=== PATIENT | male | born 1985 | race Two or more races ===

== ENCOUNTER 2017-04-16 01:31 | Emergency (ER) | payer OTHER ==
[~2017-04-16] VITALS: Ht 167.6 cm; Wt 106.6 kg
--- NOTE | ~2017-04-16 | CR132 ---
[facility] A Service of [facility] & [facility] RADIOLOGY TEXT RESULTS PATIENT: SHAHRAM FAN LOCATION: [facility] : 89 UNIT #: [id number] AGE: [address]: WILLY MORALES APRN SEX: M ORDER DR: [id number] [facility] [address] [place], [place] [address] [id number] E MR#: [id number] Acc #: [id number] NAME: SHAHRAM FAN : 1985 SEX: M STUDY DATE/TIME: 04/16/2017 3:17 UNIT: [facility] ROOM: STUDY DESCRIPTION: CR Forearm 2 View Lt Attending Physician: Willy Morales Aprn Ordering Physician: Willy Morales Aprn Primary Care Physician: Primary Care Physician No MEDICAL IMAGING REPORT This report is preliminary unless electronic signature is present EXAM Left forearm 2 views HISTORY Arm pain after fall today. FINDINGS AP and lateral views of the forearm show no evidence of fracture or destructive bone lesion. No periosteal elevation is seen. No radiodense foreign bodies are noted. Adjacent soft tissue structures are normal. IMPRESSION Normal forearm. Dictated by... William Pepe M.D. THIS IS AN ELECTRONICALLY VERIFIED REPORT William Pepe M.D. at 04/17/2017 4:49 AM KOURTNEY/[email or web address] TD: 04/17/2017 00:05 JOB #: [id number] MEDICAL IMAGING REPORT Page 1 of 1 COPY
--- NOTE | ~2017-04-16 | CR93 ---
[facility] A Service of [facility] & [facility] RADIOLOGY TEXT RESULTS PATIENT: SHAHRAM FAN LOCATION: [facility] : 87 UNIT #: [id number] AGE: [address]: WILLY MORALES APRN SEX: M ORDER DR: [id number] [facility] [address] [place], [place] [address] [id number] E MR#: [id number] Acc #: [id number] NAME: SHAHRAM FAN : 1985 SEX: M STUDY DATE/TIME: 04/16/2017 3:15 UNIT: [facility] ROOM: STUDY DESCRIPTION: CR Elbow Min 3 Views Lt Attending Physician: Willy Morales Aprn Ordering Physician: Willy Morales Aprn Primary Care Physician: No Primary Care Physician MEDICAL IMAGING REPORT This report is preliminary unless electronic signature is present EXAM Left elbow, 3 views. HISTORY Elbow pain after fall today. FINDINGS AP and lateral examination of the elbow shows satisfactory articulation of the humerus with the proximal radius and ulna. There is no identifiable fracture, dislocation, joint effusion, or radiopaque foreign body in the soft tissues. IMPRESSION Normal elbow. Dictated by... William Pepe M.D. THIS IS AN ELECTRONICALLY VERIFIED REPORT William Pepe M.D. at 04/17/2017 4:49 AM KOURTNEY/chacha TD: 04/17/2017 00:03 JOB #: [id number] MEDICAL IMAGING REPORT Page 1 of 1 COPY
--- NOTE | ~2017-04-16 | CR156 ---
[facility] A Service of [facility] & [facility] RADIOLOGY TEXT RESULTS PATIENT: SHAHRAM FAN LOCATION: [facility] : 87 UNIT #: [id number] AGE: [address]: WILLY MORALES APRN SEX: M ORDER DR: [id number] [facility] [address] [place], [place] [address] [id number] E MR#: [id number] Acc #: [id number] NAME: SHAHRAM FAN : 1985 SEX: M STUDY DATE/TIME: 04/16/2017 3:12 UNIT: [facility] ROOM: STUDY DESCRIPTION: CR Humerus Min 2 View Lt Attending Physician: Willy Morales Aprn Ordering Physician: Willy Morales Aprn Primary Care Physician: Primary Care Physician No MEDICAL IMAGING REPORT This report is preliminary unless electronic signature is present EXAM Left humerus 2 views HISTORY Arm pain after fall today. FINDINGS 2 views left humerus are negative. Normal bone alignment. No fracture or abnormal sclerosis. IMPRESSION Negative left humerus. Dictated by... William Pepe M.D. THIS IS AN ELECTRONICALLY VERIFIED REPORT William Pepe M.D. at 04/17/2017 4:49 AM KOURTNEY/caleb TD: 04/17/2017 00:02 JOB #: [id number] MEDICAL IMAGING REPORT Page 1 of 1 COPY
== END 2017-04-16 05:26 | disposition home or self-care (01) ==
LOC: CED 01:31
DX: S50.02XA Contusion of left elbow, initial encounter (principal); J45.909 Unspecified asthma, uncomplicated; W18.30XA Fall on same level, unspecified, initial encounter; Y92.009 Unspecified place in unspecified non-institutional (private) residence as the place of occurrence of the external cause
CPT/HCPCS: 73060; 73080; 73090; 99283